=== PATIENT | female | born 1940 | race Caucasian/White ===

== ENCOUNTER → 2018-07-18 | Outpatient (CLI) | payer MEDICARE, OTHER | END | disposition home or self-care (01) | LOC: PETCFH 12:40 | PROVIDERS: ATTEND Internal Medicine Hematology & Oncology | DX: C91.11 Chronic lymphocytic leukemia of B-cell type in remission (principal); R22.0 Localized swelling, mass and lump, head | CPT/HCPCS: 78815; A9552 ==

== ENCOUNTER 2018-07-19 12:02 | Outpatient (CLI) | payer MEDICARE, OTHER ==
[2018-07-19] MEDS ORDERED: LIDOCAINE-MPF 1%, 5ML ONE (13:20)
== END 2018-07-19 23:59 | disposition home or self-care (01) ==
LOC: RAD 12:02
PROVIDERS: ATTEND Internal Medicine Hematology & Oncology
DX: D72.89 Other specified disorders of white blood cells (principal)
CPT/HCPCS: 10005; 70110; 76942; 88172; 88173; 88184; 88185

== ENCOUNTER → 2018-08-22 | Outpatient (CLI) | payer MEDICARE, OTHER ==
[~2018-08-22] MED LIST: NONE PER PT
== END | disposition home or self-care (01) ==
LOC: CFH 13:47
PROVIDERS: ATTEND Internal Medicine Hematology & Oncology
DX: I08.2 Rheumatic disorders of both aortic and tricuspid valves (principal); C91.11 Chronic lymphocytic leukemia of B-cell type in remission
CPT/HCPCS: 93306

== ENCOUNTER 2018-08-23 12:25 | Day surgery (SDC) | payer MEDICARE, OTHER ==
[~2018-08-23] VITALS: Ht 176.5 cm; Wt 59.9 kg
[2018-08-23] MEDS ORDERED: SODIUM CHLORIDE 0.9% 1,000 ML IV SCH (12:55)
[2018-08-23] MEDS ORDERED: NONE PER PT (12:55)
[2018-08-23] MEDS ORDERED: CEFAZOLIN PMX 1GM/50ML 50 ML IV ONE (13:00)
[2018-08-23 13:32] VITALS: BP 148/81
[2018-08-23] MEDS ORDERED: LIDOCAINE-MPF 1%, 5ML ONE ×2 (14:49)
[2018-08-23] MEDS ORDERED: LIDOCAINE 1%, 20ML ONE (14:51)
== END 2018-08-23 16:25 | disposition home or self-care (01) ==
LOC: OUT 12:25
PROVIDERS: ATTEND Internal Medicine Hematology & Oncology
DX: Z45.02 Encounter for adjustment and management of automatic implantable cardiac defibrillator (principal); C91.11 Chronic lymphocytic leukemia of B-cell type in remission
CPT/HCPCS: 36561; 77001; C1788; J0690; J1642; J3490; J7030

== ENCOUNTER → 2018-10-10 | Outpatient (CLI) | payer MEDICARE, OTHER | END | disposition home or self-care (01) | LOC: ROC 13:03 | PROVIDERS: ATTEND Radiology Radiation Oncology | DX: C83.31 Diffuse large B-cell lymphoma, lymph nodes of head, face, and neck (principal); Z79.899 Other long term (current) drug therapy | CPT/HCPCS: G0463 ==

== ENCOUNTER 2018-10-24 12:09 | Inpatient (IN) | payer MEDICARE, OTHER ==
[~2018-10-24] VITALS: Ht 177.8 cm; Wt 45.7 kg
--- NOTE | 2018-10-24 12:24 | NUR ---
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
[2018-10-24 12:50] LABS: BASOPHILS # (AUTO) 0.03 x10^3/uL (0-0.1); BASOPHILS % (AUTO) 0 % (0-1); EOSINOPHILS % (AUTO) 0 % (1-7); LYMPHOCYTES # (AUTO) 0.54 x10^3/uL (1-3.4); LYMPHOCYTES % (AUTO) 5 % (22-44); MD NO; MEAN CORPUSCULAR HEMOGLOBIN 31.4 pg (27.0-34.8); MEAN CORPUSCULAR HGB CONC 32.8 g/dL (32.4-35.8); MEAN CORPUSCULAR VOLUME 95.8 fL (80-100); MEAN PLATELET VOLUME 7.6 fL (7.4-10.4); MONOCYTES # (AUTO) 0.86 x10^3/uL (0.2-0.8); MONOCYTES % (AUTO) 8 % (2-9); NEUTROPHILS % (AUTO) 87 % (42-75); PLATELET COUNT 240 x10^3/uL (130-400); RED BLOOD COUNT 3.46 x10^6/uL (3.82-5.3); RED CELL DISTRIBUTION WIDTH 14.5 % (9.6-15.2)
--- NOTE | 2018-10-24 12:50 | NUR ---
PT TO ROOM ON GURNEY FROM TRIAGE. SOB. ON 3 LPM TO MAINTAIN SATS >90%. IV ACCESS ESTABLISHED. LAB TO BEDSIDE FOR BLOOD AND ISTAT. PER MD, CREATNINE IS ACCEPTABLE FOR CT. CT CALLED AND PT TO CT STAT FOR CTA.
[2018-10-24] MEDS ORDERED: SODIUM CHLORIDE FLUSH 10ML SYR IVF ONE (13:00)
[2018-10-24 13:02] LABS: ALBUMIN 2.8 g/dL (3.4-5.0); ANION GAP 9 mmol/L (5-15); CALCIUM 8.4 mg/dL (8.5-10.1); CHLORIDE 100 mmol/L (98-107); CREATININE 0.74 mg/dL (0.55-1.02)
[2018-10-24 13:06] LABS: TROPONIN I < 0.015 ng/mL (0.000-0.045)
[2018-10-24] MEDS ORDERED: OMNIPAQUE 350 MG/ML, 100ML BOTTLE ONE (13:10)
[2018-10-24] MEDS ORDERED: CEFTRIAXONE PMX 1GM/50ML 50 ML IVPB ONE (13:30)
[2018-10-24] MEDS ORDERED: AZITHROMYCIN 500 MG in SODIUM CHLORIDE 0.9% 250 ML IVPB ONE (13:30)
--- NOTE | 2018-10-24 13:42 | NUR ---
PT RESTING ON GUDAYNA. LAB TO BEDSIDE FOR CULTURES. ALL CONCERNS ADRESSED. UPDATED ON POC AND PT AGREES.
[2018-10-24] MEDS ORDERED: SODIUM CHLORIDE FLUSH 10ML SYR IVF PRN (14:00)
[2018-10-24] MEDS ORDERED: CEFTRIAXONE PMX 1GM/50ML 50 ML ONE (14:16)
--- NOTE | 2018-10-24 14:20 | NUR ---
REPORT TO DEVORAH SALINAS
[2018-10-24] MEDS ORDERED: CHEMO (14:24)
[2018-10-24] MEDS ORDERED: IBUPROFEN 600 MG TABLET PO PRN (14:30)
[2018-10-24] MEDS ORDERED: FUROSEMIDE 20 MG/2 ML IV ONE (14:30)
[2018-10-24] MEDS ORDERED: ONDANSETRON 2MG/ML, 2ML IVPush PRN (14:30)
[2018-10-24] MEDS ORDERED: hydrALAzine 20 MG/ML, 1ML IVPush PRN (14:30)
[2018-10-24] MEDS ORDERED: ACETAMINOPHEN 325 MG TABLET PO PRN (14:30)
[2018-10-24] MEDS ORDERED: morphine SULFATE 10 MG/ML, 1ML IVPush PRN (14:30)
[2018-10-24] MEDS ORDERED: ENOXAPARIN 40 MG/0.4 ML ONE (14:44)
[2018-10-24 14:49] VITALS: BP 131/68
[2018-10-24] MEDS ORDERED: ENOXAPARIN 40 MG/0.4 ML SQ SCH (15:00)
[2018-10-24] MEDS ORDERED: AZITHROMYCIN 500 MG in SODIUM CHLORIDE 0.9% 250 ML IV SCH (15:00)
[2018-10-24] MEDS: GUAIFENESIN ER 600 MG TABLET PO SCH (19:56)
[2018-10-24 20:51] VITALS: BP 99/59
[2018-10-25 01:00] VITALS: BP 95/55
[2018-10-25 04:51] LABS: BASOPHILS # (AUTO) 0.02 x10^3/uL (0-0.1); BASOPHILS % (AUTO) 0 % (0-1); EOSINOPHILS # (AUTO) 0.01 x10^3/uL (0-0.4); EOSINOPHILS % (AUTO) 0 % (1-7); LYMPHOCYTES # (AUTO) 0.51 x10^3/uL (1-3.4); LYMPHOCYTES % (AUTO) 5 % (22-44); MD NO; MEAN CORPUSCULAR HEMOGLOBIN 32.1 pg (27.0-34.8); MEAN CORPUSCULAR HGB CONC 34.4 g/dL (32.4-35.8); MEAN CORPUSCULAR VOLUME 93.2 fL (80-100); MEAN PLATELET VOLUME 7.8 fL (7.4-10.4); MONOCYTES # (AUTO) 0.88 x10^3/uL (0.2-0.8); MONOCYTES % (AUTO) 9 % (2-9); NEUTROPHILS # (AUTO) 8.89 x10^3/uL (1.8-6.8); NEUTROPHILS % (AUTO) 86 % (42-75); PLATELET COUNT 223 x10^3/uL (130-400); RED BLOOD COUNT 3.25 x10^6/uL (3.82-5.3); RED CELL DISTRIBUTION WIDTH 14.6 % (9.6-15.2)
[2018-10-25 05:02] LABS: ANION GAP 9 mmol/L (5-15); CALCIUM 8.2 mg/dL (8.5-10.1); CHLORIDE 102 mmol/L (98-107); CREATININE 0.74 mg/dL (0.55-1.02)
[2018-10-25] MEDS ORDERED: FUROSEMIDE 20 MG/2 ML IV ONE (07:00)
[2018-10-25] MEDS ORDERED: ACETAMINOPHEN 325 MG TABLET PO PRN (07:30)
[2018-10-25] MEDS: HEPARIN 5,000 UNITS/ML, 1ML SQ SCH ×2 (08:35→21:05)
[2018-10-25] MEDS: GUAIFENESIN ER 600 MG TABLET PO SCH ×2 (08:40→21:06)
[2018-10-25 08:41] VITALS: BP 105/65
[2018-10-25] MEDS: CEFTRIAXONE PMX 1GM/50ML 50 ML IV SCH (14:58)
[2018-10-25 15:02] VITALS: BP 91/68
[2018-10-25] MEDS ORDERED: FUROSEMIDE 20 MG/2 ML IV SCH (17:00)
[2018-10-25] MEDS ORDERED: POTASSIUM CHLORIDE 20 MEQ TAB.ER.PRT PO SCH (17:00)
[2018-10-25 20:58] VITALS: BP 99/62
[2018-10-26 02:09] VITALS: BP 98/60
[2018-10-26 04:52] LABS: CHLORIDE 100 mmol/L (98-107)
[2018-10-26 05:04] LABS: ANION GAP 6 mmol/L (5-15); CALCIUM 8.2 mg/dL (8.5-10.1)
[2018-10-26 08:02] VITALS: BP 108/64
[2018-10-26] MEDS: GUAIFENESIN ER 600 MG TABLET PO SCH ×2 (08:13→20:14)
[2018-10-26] MEDS: HEPARIN 5,000 UNITS/ML, 1ML SQ SCH ×2 (08:14→20:13)
[2018-10-26 13:30] VITALS: BP 99/64
[2018-10-26] MEDS: CEFTRIAXONE PMX 1GM/50ML 50 ML IV SCH (14:24)
[2018-10-26 20:25] VITALS: BP 112/74
[2018-10-27 01:45] VITALS: BP 102/62
[2018-10-27 08:35] VITALS: BP 95/59
[2018-10-27] MEDS: GUAIFENESIN ER 600 MG TABLET PO SCH ×2 (08:37→19:51)
[2018-10-27] MEDS: HEPARIN 5,000 UNITS/ML, 1ML SQ SCH ×2 (08:37→19:51)
[2018-10-27] MEDS: LACTOBACILLUS CHEW TABLET PO SCH ×3 (10:37→19:51)
[2018-10-27 14:22] VITALS: BP 102/66
[2018-10-27] MEDS: CEFTRIAXONE PMX 1GM/50ML 50 ML IV SCH (14:50)
[2018-10-27 18:46] LABS: CLOSTRIDIUM DIFFICILE ANTIGEN NEGATIVE; CLOSTRIDIUM DIFFICILE TOXIN NEGATIVE (Negative)
[2018-10-27 20:42] VITALS: BP 104/65
[2018-10-28 01:30] VITALS: BP 101/62
[2018-10-28 08:19] VITALS: BP 115/71
[2018-10-28] MEDS: LACTOBACILLUS CHEW TABLET PO SCH ×3 (08:22→20:26)
[2018-10-28] MEDS: GUAIFENESIN ER 600 MG TABLET PO SCH ×2 (08:22→20:26)
[2018-10-28] MEDS: HEPARIN 5,000 UNITS/ML, 1ML SQ SCH ×2 (08:22→20:26)
[2018-10-28] MEDS: SODIUM CHLORIDE 0.9% 1,000 ML IV SCH (12:55)
[2018-10-28 15:55] VITALS: BP 104/63
[2018-10-28 19:54] VITALS: BP 104/66
[2018-10-28] MEDS: DOXYCYCLINE 100MG CAP PO SCH (20:26)
[2018-10-28] MEDS: AMOXICILLIN 500 MG CAPSULE PO SCH (20:26)
[2018-10-29 02:22] VITALS: BP 109/61
[2018-10-29] MEDS: SODIUM CHLORIDE 0.9% 1,000 ML IV SCH (05:02)
[2018-10-29 05:03] LABS: ANION GAP 5 mmol/L (5-15); CHLORIDE 105 mmol/L (98-107)
[2018-10-29 05:09] LABS: CREATININE 0.59 mg/dL (0.55-1.02)
[2018-10-29 08:13] VITALS: BP 99/62
[2018-10-29] MEDS: LACTOBACILLUS CHEW TABLET PO SCH ×2 (08:13→17:30)
[2018-10-29] MEDS: GUAIFENESIN ER 600 MG TABLET PO SCH (08:13)
[2018-10-29] MEDS: AMOXICILLIN 500 MG CAPSULE PO SCH (08:13)
[2018-10-29] MEDS: DOXYCYCLINE 100MG CAP PO SCH (08:13)
[2018-10-29] MEDS: HEPARIN 5,000 UNITS/ML, 1ML SQ SCH (08:13)
[2018-10-29] MEDS ORDERED: ACID1TAB7 PO (10:12)
[2018-10-29] MEDS ORDERED: AMOX-291 PO (10:12)
[2018-10-29] MEDS ORDERED: DOXY100C2 PO (10:12)
[2018-10-29 13:53] VITALS: BP 116/67
== END 2018-10-29 17:33 | disposition home or self-care (01) | DRG 871 ==
LOC: ED 13:34 → EDIP 13:35 → ED 13:51 → 3NW 14:40
PROVIDERS: ADMIT Hospitalist; ATTEND Hospitalist
DX: A41.9 Sepsis, unspecified organism (principal); J96.01 Acute respiratory failure with hypoxia; J18.9 Pneumonia, unspecified organism; C85.90 Non-Hodgkin lymphoma, unspecified, unspecified site; E44.0 Moderate protein-calorie malnutrition; E87.1 Hypo-osmolality and hyponatremia; Z68.1 Body mass index [BMI] 19.9 or less, adult; R65.10 Systemic inflammatory response syndrome (SIRS) of non-infectious origin without acute organ dysfunction; D89.9 Disorder involving the immune mechanism, unspecified; Z92.21 Personal history of antineoplastic chemotherapy; I50.9 Heart failure, unspecified; G47.00 Insomnia, unspecified
CPT/HCPCS: 36415; 36600; 71045; 71275; 80047; 80048; 82040; 82803; 83605; 83615; 83880; 84145; 84484; 85025; 87040; 87324; 87449; 93005; 93306; 96374; G0378; J0456; J0696; J1644; J1650; Q9967; J1940; J7030; J7050

== ENCOUNTER → 2018-11-14 | Outpatient (CLI) | payer MEDICARE, OTHER ==
[~2018-11-14] MED LIST changes: +ACID1TAB7 PO; +AMOX-291 PO; +CHEMO; +DOXY100C2 PO
== END | disposition home or self-care (01) ==
LOC: PETCFH 07:49
PROVIDERS: ATTEND Internal Medicine Hematology & Oncology
DX: C91.11 Chronic lymphocytic leukemia of B-cell type in remission (principal); C85.10 Unspecified B-cell lymphoma, unspecified site
CPT/HCPCS: 78815; A9552

== ENCOUNTER 2018-11-22 14:12 | Outpatient (CLI) | payer MEDICARE, OTHER | END 2018-11-22 23:59 | disposition home or self-care (01) | LOC: ROC 14:12 | PROVIDERS: ATTEND Radiology Radiation Oncology | DX: Z08 Encounter for follow-up examination after completed treatment for malignant neoplasm (principal); J18.9 Pneumonia, unspecified organism; Z85.6 Personal history of leukemia | CPT/HCPCS: 71046; G0463 ==

== ENCOUNTER 2018-11-22 14:32 | Outpatient (CLI) | payer MEDICARE, OTHER | END 2018-11-22 23:59 | disposition home or self-care (01) | LOC: CFH 14:32 | PROVIDERS: ATTEND Family Medicine | DX: Z02.9 Encounter for administrative examinations, unspecified (principal) ==

== ENCOUNTER 2018-12-14 13:06 | Day surgery (SDC) | payer MEDICARE, OTHER | END 2018-12-14 23:59 | disposition home or self-care (01) | LOC: RAD 13:06 | PROVIDERS: ATTEND Internal Medicine Hematology & Oncology | DX: Z45.2 Encounter for adjustment and management of vascular access device (principal); C85.10 Unspecified B-cell lymphoma, unspecified site | CPT/HCPCS: 36590; 77001 ==

== ENCOUNTER 2018-12-31 08:12 | Outpatient (CLI) | payer MEDICARE, OTHER | END 2018-12-31 23:59 | disposition home or self-care (01) | LOC: ROC 08:12 | PROVIDERS: ATTEND Radiology Radiation Oncology | DX: C83.31 Diffuse large B-cell lymphoma, lymph nodes of head, face, and neck (principal) | CPT/HCPCS: G0463 ==

== ENCOUNTER 2019-06-19 09:52 | Outpatient (CLI) | payer MEDICARE, OTHER ==
[2019-06-19] MEDS ORDERED: OMNIPAQUE 350 MG/ML, 100ML BOTTLE ONE (13:28)
== END 2019-06-19 23:59 | disposition home or self-care (01) ==
LOC: CFH 09:52
PROVIDERS: ATTEND Internal Medicine Hematology & Oncology
DX: C91.11 Chronic lymphocytic leukemia of B-cell type in remission (principal); C85.10 Unspecified B-cell lymphoma, unspecified site; M47.812 Spondylosis without myelopathy or radiculopathy, cervical region; I65.29 Occlusion and stenosis of unspecified carotid artery
CPT/HCPCS: 70491; Q9967